=== PATIENT | female | born 2000 | race Caucasian/White ===

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

== ENCOUNTER → 2018-03-08 | Outpatient (REF) | payer OTHER | LOC: M LAB 14:05 | DX: J00 Acute nasopharyngitis [common cold] (principal) ==

== ENCOUNTER 2018-03-15 23:37 | Emergency (ER) | payer OTHER ==
[2018-03-16] MEDS: ACETAMINOPHEN TAB 650MG DOSE (2X325MG) PO (02:03)
[2018-03-16] MEDS: traMADol 50 MG TAB (BULK 4 TAB ED) PO (02:04)
== END 2018-03-16 02:08 | disposition home or self-care (01) ==
LOC: M ED 23:37
DX: S93.402A Sprain of unspecified ligament of left ankle, initial encounter (principal); X50.1XXA Overexertion from prolonged static or awkward postures, initial encounter; Y92.9 Unspecified place or not applicable; Y93.9 Activity, unspecified; Y99.9 Unspecified external cause status
CPT/HCPCS: 73610

== ENCOUNTER → 2018-04-11 | Outpatient (CLI) | payer OTHER ==
[2018-04-11 16:19] LABS: CONTROL LINE HCG INT CTR LINE PRESENT; HCG, SERUM QUALITATIVE NEGATIVE (NEGATIVE)
== END ==
LOC: M LAB 15:38
DX: N91.2 Amenorrhea, unspecified (principal)
CPT/HCPCS: 84703

== ENCOUNTER → 2018-10-29 | Outpatient (CLI) | payer OTHER ==
[2018-10-29 16:37] LABS: BASO % 0.5 % (0.0-1.0); EOS # 0.3 10^3/uL (0.0-0.50); EOS % 3.1 % (0.0-3.0); HEMOGLOBIN 12.4 g/dl (12.0-15.5); IMMATURE GRANULOCYTE % 0.2 % (0-3.0); LYMPH # 3.7 10^3/uL (1.5-6.5); LYMPH % 45.1 % (24.0-44.0); MEAN CORPUSCULAR HEMOGLOBIN 28.4 pg (27.0-33.0); MEAN CORPUSCULAR HGB CONC 33.5 g/dl (32.0-36.5); MEAN CORPUSCULAR VOLUME 84.7 fl (80.0-96.0); MONO # 0.6 10^3/uL (0.0-0.8); MONO % 7.3 % (0.0-5.0); NEUTROPHILS # 3.6 10^3/uL (1.8-7.7); NEUTROPHILS % 43.8 % (36.0-66.0); PLATELET COUNT, AUTOMATED 327 10^3/uL (150-450); RED BLOOD COUNT 4.37 10^6/uL (4.00-5.40); RED CELL DISTRIBUTION WIDTH 12.6 % (11.5-14.5); WHITE BLOOD COUNT 8.1 10^3/uL (4.0-10.0)
[2018-10-29 16:43] LABS: ALBUMIN/GLOBULIN RATIO 1.11 (1.00-1.93); ALKALINE PHOSPHATASE 81 U/L (45-117); ALT/SGPT 49 U/L (12-78); AMYLASE 40 U/L (25-115); ANION GAP 8 MEQ/L (8-16); AST/SGOT 25 U/L (7-37); BILIRUBIN,TOTAL 0.3 MG/DL (0.2-1.0); BLOOD UREA NITROGEN 15 MG/DL (7-18); CALCIUM LEVEL 8.8 MG/DL (8.5-10.1); CARBON DIOXIDE LEVEL 26 MEQ/L (21-32); CHLORIDE LEVEL 103 MEQ/L (98-107); GLUCOSE, FASTING 88 MG/DL (70-100); HCG, SERUM QUANTITATIVE < 1.0 MIU/ML; LIPASE 204 U/L (73-393); POTASSIUM SERUM 4.2 MEQ/L (3.5-5.1); SODIUM LEVEL 137 MEQ/L (136-145); TOTAL PROTEIN 7.6 GM/DL (6.4-8.2)
== END ==
LOC: M WUC 14:12
DX: R10.815 Periumbilic abdominal tenderness (principal)
CPT/HCPCS: 82150

== ENCOUNTER 2018-11-07 01:38 | Emergency (ER) | payer OTHER ==
[2018-11-07] MEDS: BACTRIM 160MG/800MG DS TAB PO (04:11)
[2018-11-07] MEDS: ACETAMINOPHEN 325 MG TAB PO (04:12)
== END 2018-11-07 04:22 | disposition home or self-care (01) ==
LOC: M ED 01:38
DX: L73.9 Follicular disorder, unspecified (principal); F90.9 Attention-deficit hyperactivity disorder, unspecified type; Z86.14 Personal history of Methicillin resistant Staphylococcus aureus infection
CPT/HCPCS: 99283

== ENCOUNTER → 2019-03-03 | Outpatient (CLI) | payer OTHER ==
[~2019-03-03] MED LIST changes: -/CLON1TA; +BACT800T5 PO; +CLON-412; +CYCL10TA PO; +IBUP-1022 PO; +NAPR-837 PO; +VYVA30CA4
[2019-03-03 18:10] LABS: FOLLICLE STIMULATING HORMONE 4.1 mIU/mL; PROGESTERONE 0.22 NG/ML; PROLACTIN 7.6 NG/ML
== END ==
LOC: M SMT 14:51
PROVIDERS: ATTEND Specialist
DX: N93.8 Other specified abnormal uterine and vaginal bleeding (principal)

== ENCOUNTER 2022-10-03 08:18 | Emergency (ER) | payer OTHER ==
[~2022-10-03] VITALS: Ht 149.9 cm; Wt 65.8 kg
[~2022-10-03 08:18] MED LIST changes: +CYCL-707 PO; -CYCL10TA PO
[2022-10-03] MEDS ORDERED: BENA25CA4 PO (08:26)
[2022-10-03] MEDS ORDERED: LEVO50TA5 (08:26)
[2022-10-03] MEDS ORDERED: diphenhydrAMINE 25MG CAP PO ONE (12:05)
[2022-10-03 13:33] LABS: GC DNA AMPLIFICATION NEGATIVE (NEGATIVE)
[2022-10-03] MEDS ORDERED: MEDR4PAK PO (13:44)
[2022-10-03] MEDS ORDERED: MACR100C43 PO (13:44)
[2022-10-03] MEDS ORDERED: METR-265 PO (13:44)
[2022-10-03 13:51] VITALS: BP 123/73
[2022-10-05] MEDS ORDERED: CEFD300C PO (10:27)
== END 2022-10-03 13:59 | disposition home or self-care (01) ==
LOC: M ED 08:18
DX: N39.0 Urinary tract infection, site not specified (principal); N89.8 Other specified noninflammatory disorders of vagina; N77.1 Vaginitis, vulvitis and vulvovaginitis in diseases classified elsewhere; E03.9 Hypothyroidism, unspecified; F90.9 Attention-deficit hyperactivity disorder, unspecified type

== ENCOUNTER → 2023-02-05 | Outpatient (REF) ==
[~2023-02-05] MED LIST changes: +BENA25CA4 PO; +CEFD300C PO; +LEVO50TA5; +MACR100C43 PO; +MEDR4PAK PO; +METR-265 PO
== END ==
LOC: M EMP 09:59
PROVIDERS: ATTEND Family Medicine
DX: Z11.52 Encounter for screening for COVID-19 (principal)

== ENCOUNTER → 2023-07-22 | Outpatient (REF) | LOC: M EMP 11:02 | PROVIDERS: ATTEND Family Medicine | DX: Z11.52 Encounter for screening for COVID-19 (principal) ==

== ENCOUNTER → 2023-09-26 | Outpatient (CLI) | payer OTHER ==
[2023-09-26 14:00] LABS: HEMATOCRIT 35.1 % (36.0-47.0); HEMOGLOBIN 11.8 g/dl (12.0-15.5); MEAN CORPUSCULAR HEMOGLOBIN 29.6 pg (27.0-33.0); MEAN CORPUSCULAR HGB CONC 33.6 g/dl (32.0-36.5); PLATELET COUNT, AUTOMATED 284 10^3/uL (150-450); RED BLOOD COUNT 3.99 10^6/uL (4.00-5.40); WHITE BLOOD COUNT 8.2 10^3/uL (4.0-10.0)
[2023-09-26 14:20] LABS: FREE T4 0.97 NG/DL (0.89-1.76); THYROID STIMULATING HORMONE 1.447 uIU/ML (0.55-4.78)
[2023-09-26 14:44] LABS: HIV 1&2 SCREEN NEGATIVE (NEGATIVE)
[2023-09-26 14:52] LABS: HEPATITIS C VIRUS ABY INDEX 0.07 INDEX (<0.8)
[2023-09-26 15:31] LABS: GC DNA AMPLIFICATION NEGATIVE (NEGATIVE)
== END ==
LOC: M PLALAB 10:33
PROVIDERS: ATTEND Advanced Practice Midwife
DX: O99.281 Endocrine, nutritional and metabolic diseases complicating pregnancy, first trimester (principal)

== ENCOUNTER → 2023-10-23 | Outpatient (CLI) | payer OTHER | LOC: M PLALAB 11:56 | PROVIDERS: ATTEND Advanced Practice Midwife | DX: Z34.81 Encounter for supervision of other normal pregnancy, first trimester (principal) ==

== ENCOUNTER → 2023-12-13 | Outpatient (CLI) | payer OTHER | LOC: M RAD 15:27 | PROVIDERS: ATTEND Advanced Practice Midwife | DX: O09.292 Supervision of pregnancy with other poor reproductive or obstetric history, second trimester (principal); Z3A.20 20 weeks gestation of pregnancy ==

== ENCOUNTER → 2024-01-24 | Outpatient (CLI) | payer OTHER ==
[2024-01-24 14:34] LABS: HEMOGLOBIN 11.1 g/dl (12.0-15.5); MEAN CORPUSCULAR HEMOGLOBIN 29.6 pg (27.0-33.0); MEAN CORPUSCULAR HGB CONC 32.6 g/dl (32.0-36.5); MEAN CORPUSCULAR VOLUME 90.7 fl (80.0-96.0); PLATELET COUNT, AUTOMATED 271 10^3/uL (150-450); RED BLOOD COUNT 3.75 10^6/uL (4.00-5.40); WHITE BLOOD COUNT 10.9 10^3/uL (4.0-10.0)
[2024-01-24 14:58] LABS: FREE T4 0.83 NG/DL (0.89-1.76); THYROID STIMULATING HORMONE 1.579 uIU/ML (0.55-4.78)
[2024-01-24 15:34] LABS: GC DNA AMPLIFICATION NEGATIVE (NEGATIVE)
== END ==
LOC: M PLALAB 09:41
PROVIDERS: ATTEND Obstetrics & Gynecology
DX: Z34.92 Encounter for supervision of normal pregnancy, unspecified, second trimester (principal)

== ENCOUNTER → 2024-02-13 | Outpatient (CLI) | payer OTHER | LOC: M WHC 15:15 | PROVIDERS: ATTEND Obstetrics & Gynecology | DX: Z36.2 Encounter for other antenatal screening follow-up (principal) ==

== ENCOUNTER → 2024-04-01 | Outpatient (CLI) | payer OTHER | LOC: M WHC 13:18 | PROVIDERS: ATTEND Specialist | DX: Z34.83 Encounter for supervision of other normal pregnancy, third trimester (principal) ==

== ENCOUNTER → 2024-04-01 | Outpatient (REF) | payer OTHER | LOC: M PLALAB 09:22 | PROVIDERS: ATTEND Obstetrics & Gynecology | DX: Z36.85 Encounter for antenatal screening for Streptococcus B (principal); Z3A.36 36 weeks gestation of pregnancy ==

== ENCOUNTER 2024-04-20 05:00 | Inpatient (IN) | payer OTHER ==
[~2024-04-20] VITALS: Ht 152.4 cm; Wt 75.0 kg
[2024-04-20 05:18] VITALS: BP 127/66
[2024-04-20] MEDS ORDERED: OXYTOCIN DRIP 30 UNITS in IV 1 EA IV PRN (07:25)
[2024-04-20] MEDS ORDERED: TRANEXAMIC ACID INJection 1,000 MG in NS 100 ML IV PRN (07:25)
[2024-04-20] MEDS ORDERED: CARBOPROST TROMETHAMINE 250 MCG/ML AMP IM PRN (07:25)
[2024-04-20] MEDS ORDERED: METHYLERGONOVINE MALEATE 0.2MG/ML 1ML VIAL IM PRN (07:25)
[2024-04-20] MEDS ORDERED: LACTATED RINGER'S 1000 ML IV PRN (07:25)
[2024-04-20 07:50] VITALS: BP 134/86
[2024-04-20 08:03] LABS: HEMATOCRIT 32.1 % (36.0-47.0); HEMOGLOBIN 9.9 g/dl (12.0-15.5); MEAN CORPUSCULAR HEMOGLOBIN 24.6 pg (27.0-33.0); MEAN CORPUSCULAR HGB CONC 30.8 g/dl (32.0-36.5); MEAN CORPUSCULAR VOLUME 79.7 fl (80.0-96.0); PLATELET COUNT, AUTOMATED 232 10^3/uL (150-450); RED BLOOD COUNT 4.03 10^6/uL (4.00-5.40); WHITE BLOOD COUNT 9.6 10^3/uL (4.0-10.0)
[2024-04-20] MEDS: PENICILLIN G POTASSIUM 5 MU IV 5 MU in D5W MINI-BAG PLUS 100 ML IV STA (08:08)
[2024-04-20] MEDS ORDERED: PRENTAB9 PO (08:22)
[2024-04-20] MEDS ORDERED: HOME MED LIST COMPLETE! XX SCH (08:25)
[2024-04-20 08:55] LABS: HEPATITIS C VIRUS ABY INDEX < 0.02 INDEX (<0.8)
[2024-04-20 10:25] VITALS: BP 105/57
[2024-04-20] MEDS: PEN G POT 3,000,000 UNIT/50 ML 3,000,000 UNIT in IV 1 EA IV SCH (12:05)
[2024-04-20 13:55] VITALS: BP 122/68
== END 2024-04-20 14:33 | disposition home or self-care (01) | DRG 565 ==
LOC: M LDO 05:00 → M LDI 07:20
PROVIDERS: ADMIT Obstetrics & Gynecology; ATTEND Obstetrics & Gynecology
DX: O47.1 False labor at or after 37 completed weeks of gestation (principal); O99.820 Streptococcus B carrier state complicating pregnancy; Z3A.38 38 weeks gestation of pregnancy

== ENCOUNTER 2024-04-24 17:25 | Outpatient (CLI) | payer OTHER ==
[~2024-04-24] VITALS: Ht 152.4 cm; Wt 73.3 kg
[~2024-04-24 17:25] MED LIST changes: +PRENTAB9 PO
[2024-04-24 17:47] VITALS: BP 129/65
[2024-04-24] MEDS ORDERED: HOME MED LIST COMPLETE! XX SCH (18:00)
== END 2024-04-24 20:32 | disposition home or self-care (01) ==
LOC: M LDO 17:25
PROVIDERS: ATTEND Advanced Practice Midwife
DX: O47.1 False labor at or after 37 completed weeks of gestation (principal); Z3A.39 39 weeks gestation of pregnancy
CPT/HCPCS: 59025; G0463

== ENCOUNTER 2024-04-30 20:25 | Inpatient (IN) | payer OTHER ==
[~2024-04-30] VITALS: Ht 152.4 cm; Wt 73.0 kg
[2024-04-30 20:36] VITALS: BP 140/72; O2SAT 98
[2024-04-30] MEDS ORDERED: HOME MED LIST COMPLETE! XX SCH (20:50)
[2024-04-30 21:36] LABS: HEMATOCRIT 30.2 % (36.0-47.0); HEMOGLOBIN 9.5 g/dl (12.0-15.5); MEAN CORPUSCULAR HEMOGLOBIN 24.2 pg (27.0-33.0); MEAN CORPUSCULAR HGB CONC 31.5 g/dl (32.0-36.5); PLATELET COUNT, AUTOMATED 244 10^3/uL (150-450); RED BLOOD COUNT 3.92 10^6/uL (4.00-5.40); WHITE BLOOD COUNT 11.5 10^3/uL (4.0-10.0)
[2024-04-30] MEDS: LR 1,000 ML IV SCH (21:36)
[2024-04-30] MEDS: PENICILLIN G POTASSIUM 5 MU IV 5 MU in D5W MINI-BAG PLUS 100 ML IV STA (21:37)
[2024-04-30 21:44] VITALS: BP 133/78
[2024-04-30 22:41] LABS: HEPATITIS C VIRUS ABY INDEX 0.06 INDEX (<0.8)
[2024-04-30 23:02] VITALS: BP 119/74
[2024-05-01] VITALS (38 sets, daily range): BP systolic 106–160; BP diastolic 55–90; TEMP 98.1; O2SAT 96–98
[2024-05-01] MEDS: PEN G POT 3,000,000 UNIT/50 ML 3,000,000 UNIT in IV 1 EA IV SCH (01:30)
[2024-05-01] MEDS: LACTATED RINGER'S 1000 ML IV STA (05:00)
[2024-05-01] MEDS ORDERED: LR 500 ML IV PRN (05:15)
[2024-05-01] MEDS ORDERED: EPIDURAL/PCA KEYS XX PRN (05:15)
[2024-05-01] MEDS ORDERED: NALOXONE INJ 0.4MG/1ML VIAL IV PRN ×3 (05:15→12:05)
[2024-05-01] MEDS ORDERED: ONDANSETRON 4MG 2ML VIAL IV PRN ×2 (05:15→12:05)
[2024-05-01] MEDS ORDERED: ePHEDrine SULFATE 25 MG/5 ML(5MG/ML) SYRINGE IVP PRN (05:15)
[2024-05-01] MEDS ORDERED: diphenhydrAMINE 50MG/ML VIAL IV PRN ×3 (05:15→12:05)
[2024-05-01] MEDS: FENTANYL/ROPIVACAINE/NACL BAG 100 ML EPIDURAL SCH (05:24)
[2024-05-01] MEDS ORDERED: TRANEXAMIC ACID INJection 1,000 MG in NS 100 ML IV PRN (08:30)
[2024-05-01] MEDS ORDERED: OXYTOCIN DRIP 30 UNITS in IV 1 EA IV PRN (08:30)
[2024-05-01] MEDS ORDERED: METHYLERGONOVINE MALEATE 0.2MG/ML 1ML VIAL IM PRN (08:30)
[2024-05-01] MEDS ORDERED: CARBOPROST TROMETHAMINE 250 MCG/ML AMP IM PRN (08:30)
[2024-05-01] MEDS ORDERED: LIDOCAINE 1% MDV 20ML VIAL INFIL PRN (08:30)
[2024-05-01] MEDS: DOCUSATE SODIUM 100MG CAPSULE PO SCH (09:00)
[2024-05-01] MEDS: ceFAZolin SOD 2 GM in IV 1 EA IV ONE (10:32)
[2024-05-01] MEDS: BICITRA 30ML SOLN UDC PO ONE (10:32)
[2024-05-01] MEDS: AZITHROMYCIN INJ 500 MG, VIAL MATE ADAPTER 1 EACH in NS 250 ML IV ONE (10:36)
[2024-05-01] MEDS ORDERED: OXYTOCIN 30UNITS IN 0.9% NaCl 500ML IV BAG As Ordered ONE (10:56)
[2024-05-01] MEDS ORDERED: MORPHINE PRES-FREE INJ 10 MG/10 ML VIAL As Ordered ONE (10:56)
[2024-05-01] MEDS ORDERED: fentaNYL 100 MCG/2 ML INJECTION As Ordered ONE (10:56)
[2024-05-01] MEDS ORDERED: PHENYLephrine 500MCG 5ML (100MCG/ML) SYRINGE As Ordered ONE (11:15)
[2024-05-01] MEDS ORDERED: OXYTOCIN INJ 10UNITS/ML 1ML VIAL As Ordered ONE (11:17)
[2024-05-01 11:21] LABS: CORD GAS ABE V -1.6; CORD GAS HCO3 V 24.8 MMOL/L; CORD GAS O2 SAT V 20.5 %; CORD GAS PCO2 V 47.6 mmHg; CORD GAS PH V 7.335 UNITS; CORD GAS PO2 V 12.8 mmHg; CORD GAS SBC V 20.8 MMOL/L; CORD GAS TCO2 V 26.3 MMOL/L
[2024-05-01 11:25] LABS: CORD GAS ABE A -4.3; CORD GAS HCO3 A 22.8 MMOL/L; CORD GAS O2 SAT A < 15.0 %; CORD GAS PCO2 A 48.8 mmHg; CORD GAS PH A 7.288 UNITS; CORD GAS PO2 A 10.6 mmHg; CORD GAS TCO2 A 24.3 MMOL/L
[2024-05-01] MEDS ORDERED: KETOROLAC 60MG 2ML VIAL As Ordered ONE (11:38)
[2024-05-01] MEDS ORDERED: oxyCODONE 5MG TAB PO PRN (11:55)
[2024-05-01] MEDS ORDERED: SIMETHICONE 80MG CHEW TAB PO PRN (11:55)
[2024-05-01] MEDS ORDERED: MOM 30ML SUSPENSION UDC PO PRN (11:55)
[2024-05-01] MEDS ORDERED: **NOTE PATIENT COMMENT** MISC XX SCH (12:05)
[2024-05-01] MEDS ORDERED: MEPERIDINE 25 MG/ML 1ML VIAL IV PRN (12:05)
[2024-05-01] MEDS ORDERED: METOCLOPRAMIDE INJ 10MG/2ML VIAL IV PRN (12:05)
[2024-05-01] MEDS: SLF 3 ML SYR IV SCH (12:05)
[2024-05-01] MEDS ORDERED: PERCOCET 5MG/325MG TAB PO PRN (12:05)
[2024-05-01] MEDS ORDERED: fentaNYL 100 MCG/2 ML INJECTION IV PRN (12:05)
[2024-05-01] MEDS: KETOROLAC 30 MG/ML 1ML VIAL IV SCH (17:36)
[2024-05-02 02:00] VITALS: BP 120/58; O2SAT 96
[2024-05-02 06:00] VITALS: BP 127/60; O2SAT 99
[2024-05-02] MEDS: PRENATAL VITAMINS CHEWABLE TABLET PO SCH (07:39)
[2024-05-02 08:00] LABS: HEMATOCRIT 22.9 % (36.0-47.0); HEMOGLOBIN 7.1 g/dl (12.0-15.5); MEAN CORPUSCULAR HEMOGLOBIN 24.4 pg (27.0-33.0); MEAN CORPUSCULAR VOLUME 78.7 fl (80.0-96.0); PLATELET COUNT, AUTOMATED 206 10^3/uL (150-450); RED BLOOD COUNT 2.91 10^6/uL (4.00-5.40); WHITE BLOOD COUNT 11.3 10^3/uL (4.0-10.0)
[2024-05-02 09:57] VITALS: BP 117/55; O2SAT 100
[2024-05-02] MEDS: oxyCODONE 5MG TAB PO PRN (11:40)
[2024-05-02 14:00] VITALS: BP 146/72; O2SAT 98
[2024-05-02] MEDS: IBUPROFEN 800 MG TAB PO SCH (14:00)
[2024-05-02 17:57] VITALS: BP 132/67; O2SAT 100
[2024-05-02 22:00] VITALS: BP 129/55; O2SAT 100
[2024-05-03 02:00] VITALS: BP 118/66; O2SAT 100
[2024-05-03] MEDS: ACETAMINOPHEN 500 MG TAB PO PRN (04:31)
[2024-05-03 06:00] VITALS: BP 143/67; O2SAT 98
[2024-05-03] MEDS ORDERED: MEASLES,MUMPS,RUBELLA VACCINE INJ (MMR-II) SC.IMMUN ONE (09:00)
[2024-05-03 10:08] VITALS: BP 138/65; O2SAT 99
[2024-05-03] MEDS ORDERED: OXYC-517 PO (11:35)
[2024-05-03] MEDS ORDERED: COLA100C5 PO (11:35)
[2024-05-03] MEDS ORDERED: ACET-683 PO (11:35)
[2024-05-03] MEDS ORDERED: IBUP80TA PO (11:37)
== END 2024-05-03 12:25 | disposition home or self-care (01) | DRG 540 ==
LOC: M LDO 20:25 → M LDI 21:22 → M OBS 05-01 13:10
PROVIDERS: ADMIT Obstetrics & Gynecology; ATTEND Obstetrics & Gynecology
PROC: 10D00Z1 Extraction of Products of Conception, Low, Open Approach (ICD-10-PCS; principal; 2024-05-01 10:39)
DX: O64.0XX0 Obstructed labor due to incomplete rotation of fetal head, not applicable or unspecified (principal); O99.824 Streptococcus B carrier state complicating childbirth; O34.83 Maternal care for other abnormalities of pelvic organs, third trimester; O76 Abnormality in fetal heart rate and rhythm complicating labor and delivery; Z3A.40 40 weeks gestation of pregnancy; Z37.0 Single live birth

== ENCOUNTER 2024-05-06 11:31 | Emergency (ER) | payer OTHER ==
[~2024-05-06] VITALS: Ht 152.4 cm; Wt 70.6 kg
[2024-05-06 11:31] VITALS: BP 141/85; TEMP 97.5; O2SAT 99
[~2024-05-06 11:31] MED LIST changes: +ACET-683 PO; +COLA100C5 PO; +IBUP80TA PO; +OXYC-517 PO
[2024-05-06] MEDS ORDERED: AMOX875T2 PO (13:00)
== END 2024-05-06 13:07 | disposition home or self-care (01) ==
LOC: M ED 11:31
DX: K04.7 Periapical abscess without sinus (principal); F90.9 Attention-deficit hyperactivity disorder, unspecified type; Z91.09 Other allergy status, other than to drugs and biological substances; Z79.1 Long term (current) use of non-steroidal anti-inflammatories (NSAID); Z79.2 Long term (current) use of antibiotics; Z79.899 Other long term (current) drug therapy; Z79.810 Long term (current) use of selective estrogen receptor modulators (SERMs)

== ENCOUNTER → 2024-07-29 | Outpatient (REF) ==
[~2024-07-29] MED LIST changes: +AMOX875T2 PO
== END ==
LOC: M EMP 09:06
PROVIDERS: ATTEND Family Medicine
DX: Z11.52 Encounter for screening for COVID-19 (principal)

== ENCOUNTER → 2024-09-09 | Outpatient (REF) | payer OTHER ==
[2024-09-11 14:36] LABS: HPV APTIMA Not Detected (Not Detected)
== END ==
LOC: M PLALAB 11:41
PROVIDERS: ATTEND Obstetrics & Gynecology
DX: Z12.4 Encounter for screening for malignant neoplasm of cervix (principal)

== ENCOUNTER → 2025-07-09 | Outpatient (REF) | LOC: M EMP 10:02 | PROVIDERS: ATTEND Family Medicine | DX: Z11.52 Encounter for screening for COVID-19 (principal) ==

== ENCOUNTER 2025-09-16 13:15 | Emergency (ER) | payer OTHER ==
[~2025-09-16] VITALS: Ht 149.9 cm; Wt 72.7 kg
[~2025-09-16 13:15] MED LIST changes: -IBUP-1022 PO; +IBUP600T42 PO
[2025-09-16 13:25] VITALS: BP 129/66; TEMP 99.3; O2SAT 97
[2025-09-16] MEDS ORDERED: DOXY-441 PO (14:33)
[2025-09-16] MEDS: DOXYCYCLINE HYCLATE 100 MG TABLET PO ONE (14:36)
== END 2025-09-16 14:39 | disposition home or self-care (01) ==
LOC: M ED 13:15
DX: L02.416 Cutaneous abscess of left lower limb (principal); L03.116 Cellulitis of left lower limb; F90.9 Attention-deficit hyperactivity disorder, unspecified type; Z79.1 Long term (current) use of non-steroidal anti-inflammatories (NSAID); Z79.2 Long term (current) use of antibiotics; Z79.899 Other long term (current) drug therapy; Z79.810 Long term (current) use of selective estrogen receptor modulators (SERMs); Z91.09 Other allergy status, other than to drugs and biological substances

== ENCOUNTER → 2025-10-22 | Outpatient (REF) | payer OTHER ==
[~2025-10-22] MED LIST changes: +DOXY-441 PO
== END ==
LOC: M LAB REF 12:04
PROVIDERS: ATTEND Physician Assistant
DX: B34.9 Viral infection, unspecified (principal)

== ENCOUNTER → 2025-11-04 | Outpatient (CLI) | payer OTHER ==
[2025-11-04 10:56] LABS: PLATELET COUNT, AUTOMATED 279 10^3/uL (150-450)
== END ==
LOC: M PLALAB 08:06
PROVIDERS: ATTEND Physician Assistant
DX: R53.83 Other fatigue (principal)

== ENCOUNTER → 2025-11-12 | Outpatient (REF) | payer OTHER ==
[2025-11-16 14:17] LABS: HPV APTIMA Not Detected (Not Detected)
== END ==
LOC: M SFHCWAGY 10:17
PROVIDERS: ATTEND Physician Assistant
DX: Z01.419 Encounter for gynecological examination (general) (routine) without abnormal findings (principal); Z77.9 Other contact with and (suspected) exposures hazardous to health